=== PATIENT | female | born 1985 | race Caucasian/White ===

== ENCOUNTER 2024-01-03 13:32 | Outpatient (CLI) | payer BC, SELFPAY | END 2024-01-03 13:33 | disposition home or self-care (01) | LOC: NFLDREF 14:15 | PROVIDERS: PCP Family Medicine; Visit Provider Advanced Practice Midwife | DX: Z13.228 Encounter for screening for other metabolic disorders (principal) | CPT/HCPCS: 80069 ==

== ENCOUNTER 2024-10-18 12:13 | Emergency (ER) | payer BC, SELFPAY ==
--- OUTSIDE RECORDS SUMMARY | 2024-10-18 12:15 | XMS_ITS | Continuity of Care Document ---
Author Name [facility] Organization [facility] Care Team Providers Care Head Cd Reactor Operator Name Role Phone [facility] Unavailable Unavailable Immunizations Combined list of available immunizations from the Department of Defense and Veterans Affairs facilities. Immunization Series Date Given Administered By Site Reaction Lot Number CVX Code Drug Fans Clerk Status Comments Source COVID-19 ([employer]), MRNA, LNP-S, PF, 30 MCG/0.3 ML DOSE 2 2020 208 complet ed PFR; [id number]; 1 [facility] COVID-19 ([employer]), MRNA, LNP-S, PF, 30 MCG/0.3 ML DOSE 1 2020 208 complet ed PFR; [id number]; 1 [facility]
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
--- OUTSIDE RECORDS SUMMARY | 2024-10-18 12:15 | XMS_ITS | Clinical Summary ---
Author Organization [facility] Address [address] [place] [address] Care Team Providers Care Guest Service Agent Name Role Phone No Ref-Primary, Physician Primary Care Provider Allergies No known active allergies Medications albuterol (PROAIR HFA/PROVENTIL HFA/VENTOLIN HFA) 108 (90 Base) MCG/ACT InhalerIndicati ons:Viral bronchitis Inhale 2 puffs into the lungs every 6 hours as needed for shortness of breath / dyspnea or wheezing 1 Inhaler 1 8 Active benzonatate (TESSALON) 200 MG capsuleIndicati ons:Cough,Viral bronchitis Take 1 capsule (200 mg) by mouth 3 times daily as needed for cough 21 capsule 8 Active Social History Tobacco Use Types Packs/Day Years Used Date Smoking Tobacco: Never Smokeless Tobacco: Never Comments No Sex and Gender Information Value Date Recorded Sex Assigned at Not on file Legal Sex Female 4:41 AM WRAP KNITTING MACHINE OPERATOR Gender Identity Not on file Sexual Orientation Not on file Last Filed Vital Signs Vital Sign Reading Time Taken Comments Blood Pressure 110/70 01/07/2018 2:04 PM CDT Pulse 70 01/07/2018 2:04 PM CDT Temperature 36.6 C (97.8 F) 01/07/2018 2:04 PM CDT Respiratory Rate 18 01/07/2018 2:04 PM CDT Oxygen Saturation 97% 01/07/2018 2:04 PM CDT Inhaled Oxygen Concentration - - Weight - - Height - - Body Mass Index - - Plan of Treatment Not on file Insurance [facility] [employer] Care Teams Guest Service Agent Relationship Specialty Start Date End Date No Ref-Primary, Physician PCP - General 01/07/18
[2024-10-18 12:16] VITALS: BP 116/82; PULSE 91; RESP 18; TEMP 36.8; O2SAT 99; BMI 25.1
--- NOTE | 2024-10-18 12:37 | CRLHL7_ITS ---
For Patients: As a result of the Century Cures Act, medical imaging exams and procedure reports are released immediately into your electronic medical record. You may view this report before your referring provider. If you have questions, please contact your health care provider. INDICATION: Vaginal bleeding TECHNIQUE: Real-time carter-scale imaging of the pelvis was performed. FINDINGS: Sonographic imaging demonstrates no findings for intrauterine . Endometrium measures 3 millimeters. There is a uterine fibroid measuring 8 millimeters. No intrauterine gestational sac is seen. Right ovary measures 3.4 x 2 x 2.4 centimeters cyst in the right ovary. Left ovary measures 2.4 x 1.6 x 2.1 centimeters. There is an anechoic cyst adjacent to the left ovary which may represent a paraovarian cyst measuring 1.2 x 1 x 1.2 centimeters to the left. Adjacent ovary is a questionable solid-appearing adnexal lesion measuring 1.6 x 0.8 x 1.1 centimeter. The cine images of this area do not clearly delineate a discrete adnexal mass. There is no free fluid seen. IMPRESSION: 1. No findings for intrauterine with 3 millimeter endometrial stripe. 2. Right ovary visualized within normal limits. Left ovary identified with anechoic left paraovarian cyst. Adjacent to the left ovary is a questionable solid heterogeneous lesion that on the cine images is difficult to delineate a discrete lesion. There is no free fluid. Findings could represent very early IUP, SAB. Ectopic can not be excluded. Correlation with hCG levels, gynecology consultation is recommended. Dictated by Roma Velasco MD @ 10/18/2024 1:35:37 PM (Electronically Signed)
[2024-10-18 13:01] LABS: Basophils Absolute Auto 0.03 K/uL (0.00-0.30); Basophils Percent Auto 0.4 % (0.0-3.0); Eosinophils Absolute Auto 0.14 K/uL (0.00-0.50); Eosinophils Percent Auto 1.8 % (0.0-7.0); Hematocrit 40.9 % (33.0-51.0); Hemoglobin* 13.6 gm/dL (12.0-16.0); Immature Granulocytes Abs Auto 0.03 K/uL (0.00-0.30); Immature Granulocytes Pct Auto 0.4 %; Lymphocytes Absolute Auto 2.15 K/uL (0.90-2.90); Lymphocytes Percent Auto 27.5 % (20-44); Mean Corpuscular HGB Conc 33 gm/dL (32-36); Mean Corpuscular Hemoglobin 31 pg (26-34); Mean Corpuscular Volume 93 fL (80-100); Monocytes Percent Auto 7.9 % (0.0-11.0); Neutrophils Absolute Auto 4.84 K/uL (1.7-7.0); Platelet Count* 307 K/uL (140-440); Red Blood Count 4.41 m/uL (4.00-5.20); White Blood Count* 7.81 K/uL (4.50-11.00)
[2024-10-18 13:03] LABS: Slide Review Reflex No
--- OUTSIDE RECORDS SUMMARY | 2024-10-18 13:13 | XMS_ITS | Clinical Summary ---
Author Organization [facility] Address [address] [place] [address] Care Team Providers Care Director Clinical Information Services Name Role Phone No Ref-Primary, Physician Primary [...] on file Legal Sex Female 4:41 AM REGISTERED NURSE FIRST ASSISTANT Gender Identity Not on file Sexual Orientation [...] Plan of Treatment Not on file Insurance [facility] [employer] Care Teams Director Clinical Information Services Relationship Specialty Start Date End Date No Ref-Primary, Physician PCP - General 01/07/18
--- OUTSIDE RECORDS SUMMARY | 2024-10-18 13:14 | XMS_ITS | Continuity of Care Document ---
Author Name [facility] Organization [facility] Care Team Providers Care Glaze Sprayer Name Role Phone [facility] Unavailable Unavailable Immunizations Combined list of available immunizations from the Department of Defense and Veterans Affairs facilities. Immunization Series Date Given Administered By Site Reaction Lot Number CVX Code Drug Ceramic Engineer Status Comments Source COVID-19 ([employer]), MRNA, LNP-S, PF, 30 MCG/0.3 ML DOSE 2 2020 208 complet ed PFR; [id number]; 1 [facility] COVID-19 (PFIZER), MRNA, LNP-S, PF, 30 MCG/0.3 ML DOSE 1 2020 208 complet ed PFR; [id number]; 1 [facility]
--- OUTSIDE RECORDS SUMMARY | 2024-10-18 13:14 | XMS_ITS | Clinical Summary ---
Author Organization [email or web address] Address [address] [place] [address] Care Team Providers Care Lockstitch Tunnel Elastic Operator Name Role Phone Unavailable Primary Care Provider [...] 9lbs 1.7lbs Genetic screening: discussed, thinking about [place] Screen BMI:25 25-35lbs weight gain Ultrasound findings: [...] Immunization Administration Dates Next Due COVID-19 vaccine ([employer] 30mcg/0.3mL) PF, MDV 12/16/2020,11/25/2020 Hepatitis B (Peds) [...] on file Legal Sex Female 5:26 AM FIELD INSURANCE SALES MANAGER Gender Identity Not on file Sexual Orientation [...] 9 Ish Wasso n/Jaison gen Complications:None Delivery Location:[facility] 2018 Term 40w 4d 0h 02m 3.3 kg (7 lb 4.4 oz) F Vag Epidur al Nanettein g 8 9 THORN, BG TWILA Tiwari Complications:None Delivery Location:[facility] (UTD 2000 MB L&D TRIAGE) Last Filed [...] Procedure Name Priority Date/Time Associated Diagnosis Comments EMT THIN PREP PAP SCREEN IMAGED Routine 11/22/2022 3:55 PM CDT Cervical cancer screening ANTI HIV 1/2 Routine 06/11/2018 9:00 AM FIELD INSURANCE SALES MANAGER Encounter for supervision of other normal , unspecified trimester (HC) from Last 3 Months or Most Recently Relevant to Health Maintenance Results * EMT THIN PREP PAP SCREEN IMAGED (11/22/2022 3:55 PM CDT) Case Report Gynecologic Cytology Report Case: [id number] Authorizing Provider: Jenny Tiwari MD Collected: 11/22/2022 1555 Ordering Location: [facility] [employer] [place] Received: 11/23/2022 0833 [facility] First Screen: Natividad Echevarria Specimen: EMT ThinPrep Vial Screening, Cervical 12/22/2022 1:13 PM CDT [facility] INTERPRETATION/ RESULT NEGATIVE FOR INTRAEPITHELIAL LESION OR MALIGNANCY (NIL) (none) 12/22/2022 1:13 PM CDT [facility] IMEN ADEQUACY Satisfactory for evaluation Endocervical component present 12/22/2022 1:13 PM CDT [facility] HPV REQUEST HPV and PAP 12/22/2022 1:13 PM CDT [facility] Date of LMP unknown 12/22/2022 1:13 PM CDT [facility] Last Pap Date 03/08/19 12/22/2022 1:13 PM CDT [facility] Last Pap Result NIL 1:13 PM CDT [facility] Abnormal Pap or [place] Bx in last 5 years No 12/22/2022 1:13 PM CDT [facility] Menstrual Status Hormonally Suppressed 12/22/2022 1:13 PM CDT [facility] [place] Bx Done Today No 12/22/2022 1:13 PM CDT [facility] Additional Information None given 12/22/2022 1:13 PM CDT [facility] Comment: Cytology is screened at [facility] - [address], [place] [address] and [facility] - [address], [place] [address] [facility] - [address] [place] [address] Interpreted at [facility] - [address] [place] [address] Automated Review Successful 12/22/2022 1:13 PM CDT [facility] Comment:Specimen processed s uccessfully by automated wind energy project manager device, ThinPrep Imaging System, [employer] ANCILLARY TESTING EMT HPV Ordered, Please see separate report 12/22/2022 1:13 PM CDT [facility] Note The pap test is a [...] and malignant lesions. 12/22/2022 1:13 PM CDT [facility] Other (Cervical) Non-Blood / Unknown 11/22/2022 3:55 PM CDT 11/23/2022 8:33 AM CDT us Jenny Tiwari MD PATHOLOGY/CYTOLOGY Final Result [facility] [address] [place] [address], [place] * ANTI HIV 1/2 (06/11/2018 9:00 AM FIELD INSURANCE SALES MANAGER) HIV-1/HIV-2 ANTIBODY Non-Reacti ve Non-Reacti ve 06/11/2018 3:24 PM FIELD INSURANCE SALES MANAGER [facility] Comment:HIV-1 p24 and HIV-1/ HIV-2 Ab not detected. Blood BLOOD SPECIMEN / Unknown Butterfly / Unknown 06/11/2018 9:00 AM FIELD INSURANCE SALES MANAGER 06/11/2018 9:00 AM FIELD INSURANCE SALES MANAGER us Jenny Tiwari MD SEND OUTS Final Re sult [facility] [address] [place] [address], [place] from Last 3 Months or Most [...]
[2024-10-18 13:29] LABS: HCG Quantitative* 60.65 mIU/mL
--- NOTE | 2024-10-18 13:35 | ED.GENADULT ---
HPI - General Adult General Chief complaint: Vaginal Bleeding Stated complaint: Bleeding Time Seen by Provider: 10/18/24 12:30 Source: patient Mode of arrival: ambulatory Limitations: no limitations History of Present Illness HPI narrative: 39-year-old female coming in today complaining of vaginal bleeding for the last 3 days. She states that on Monday she took a test and it was positive. She states that she has been having moderate to heavy bleeding. She states that she will switch her pad every 3-4 hours. She denies feeling dizzy or lightheaded. No chest pain or shortness of breath. She is concerned that she is having a miscarriage. Her LMP was September 10. patient is not on control and is trying to get . Related Data Home Medications ?Medication ?Instructions ?Recorded ?Confirmed No Known Home Medications 01/03/24 10/18/24 Allergies Allergy/AdvReac Type Severity Reaction Status Date / Time No Known Drug Allergies Allergy Verified 10/18/24 12:23 Review of Systems Status of ROS: Reports: 10 or more systems reviewed and unremarkable except as noted in History and below [facility] Medical History Abnormal mammogram of left breast ?R92.8 - Other abnormal and inconclusive findings on diagnostic imaging of breast (ICD-10) History of pre-eclampsia ?Z87.59 - Personal history of other complications of , childbirth and the puer[place]ium (ICD-10) TBI (traumatic brain injury) ?S06.9XAA - Unspecified intracranial injury with loss of consciousness status unknown, initial encounter (ICD-10) Skull fracture ?S02.91XA - Unspecified fracture of skull, initial encounter for closed fracture (ICD-10) Surgical History Hx of LASIK ?Z98.890 - Other specified postprocedural states (ICD-10) Brickeys teeth extracted ?K08.409 - Partial loss of teeth, unspecified cause, unspecified class (ICD-10) Family History Mother Cardiac arrhythmia Maternal Grandmother Breast cancer Paternal Grandmother Breast cancer Father High blood pressure Social History What is your current living situation?: I presently have a place to live Problems where you live: no known problems In the past 12 months, utilities in danger of being shut off: no In past 12 months, lack of transportation kept you from medical appts, meetings, work, or getting things needed for daily living: no In the past 12 mos, have been you worried that your food would run out before you had money to buy more?: never true In the past 12 mos, the food you bought just didn't last and you didn't have money to buy more?: never true Smoking Status: Never smoker Do you use any of these nicotine containing products: None How often do you have a drink containing alcohol: never How often do you have six or more drinks on one occasion: Never AUDIT-C Alcohol total score: 0 Non-prescribed substance use: denies use Within the last year, have you been humiliated or emotionally abused in other ways by your partner or ex-partner: no Within the last year, have you been afraid of your partner or ex-partner: no Within the last year, have you been raped or forced to have any kind of sexual activity by your partner or ex-partner: no Within the last year, have you been kicked, hit, slapped, or otherwise physically hurt by your partner or ex-partner: no HARK total score: 0 How often does anyone, including family, friends and others, physically hurt you: never How often does anyone, including family, friends and others, insult or talk down to you: rarely How often does anyone, including family, friends and others, threaten you with harm: never How often does anyone, including family, friends and others, scream or curse at you: never Health Related Social Needs: Other personal risk factors, not elsewhere classified (Z91.89) Exam Narrative: Exam Narrative: Well-nourished well-developed patient in no acute distress. Alert and oriented. Answers questions appropriately. Mood and affect are appropriate. Thoughts are goal oriented and rational. No tangential or magical thinking noted. Patient speaks in full sentences without needing to catch her breath. HEENT: Normocephalic atraumatic. Pupils are equally round reactive to light. Extraocular muscles are intact. Conjunctivae are moist without any icterus noted. Moist mucous membranes. Cardiovascular: Heart is regular rate and rhythm S1 and S2 are present without any murmurs. Lungs: Clear to auscultation bilaterally no wheezes rhonchi or rales are appreciated. Patient takes deep breaths without any discomfort. Abdomen: Soft and nontender nondistended with normal bowel sounds. Extremities: Bilateral lower extremities are without edema. Skin: Well perfused without any obvious rashes. Const: Vital Signs, click to edit/add: Vital Signs - 24 hr 10/18/24 12:16 Temperature 98.3 F Pulse Rate [Right Pulse Oximeter] 91 Respiratory Rate 18 Blood Pressure [Ri ght Upper Arm] 116/82 Pulse Oximetry 99 Oxygen Delivery Me thod Room Air Course Course ED Course: CBCs normal. HCG 60 consistent with at 1-2 weeks. Ultrasound does not show an IUP does show a questionable solid heterogenous lesion adjacent to the left ovary. Discussed results with Dr. Winters who recommends repeat hCG in 48 hours which will be done through the outpatient weak and labs in the hospital. And then follow up on Monday with OBGYN. Vital Signs Vital signs: Initial Vital Signs Temperature 98.3 F 10/18/24 12:16 Temperature Source Temporal Artery Scan 10/18/24 12:16 Pulse Rate 91 10/18/24 12:16 Pulse Rhythm Regular 10/18/24 12:16 Pulse Strength 3+ Normal 10/18/24 12:16 Respiratory Rate 18 10/18/24 12:16 Blood Pressure 116/82 10/18/24 12:16 Blood Pressure Mean 93 10/18/24 12:16 Blood Pressure Position Sitting 10/18/24 12:16 Pulse Oximetry 99 10/18/24 12:16 Oxygen Delivery Method Room Air 10/18/24 12:16 Vital Signs Temperature 98.3 F 10/18/24 12:16 Pulse Rate 91 10/18/24 12:16 Respiratory Rate 18 10/18/24 12:16 Blood Pressure 116/82 10/18/24 12:16 Pulse Oximetry 99 10/18/24 12:16 Oxygen Delivery Method Room Air 10/18/24 12:16 Temperature 98.3 F 10/18/24 12:16 Pulse Rate 91 10/18/24 12:16 Respiratory Rate 18 10/18/24 12:16 Blood Pressure 116/82 10/18/24 12:16 Pulse Oximetry 99 10/18/24 12:16 Oxygen Delivery Method Room Air 10/18/24 12:16 Medical Decision Making MDM Narrative Medical decision making narrative: 39-year-old female, positive test presents with vaginal bleeding. Differential diagnosis at this time includes intrauterine , threatened , ectopic . Plan per above. ABO Rh added to blood draw. Lab Data Lab results reviewed: Yes I reviewed the patient's lab results Labs: Lab Results 10/18/24 Range/Units 12:45 WBC 7.81 (4.50-11.00) K/uL RBC 4.41 (4.00-5.20) m/uL Hgb 13.6 (12.0-16.0) gm/dL Hct 40.9 (33.0-51.0) % MCV 93 (80-100) fL MCH 31 (26-34) pg MCHC 33 (32-36) gm/dL RDW Coeff of Raudel 12.0 (11.5-15.5) % Plt Count 307 (140-440) K/uL Neut % (Auto) 62.0 (42.0-72.0) % Lymph % (Auto) 27.5 (20-44) % Davison % (Auto) 7.9 (0.0-11.0) % Eos % (Auto) 1.8 (0.0-7.0) % Baso % (Auto) 0.4 (0.0-3.0) % Neut # (Auto) 4.84 (1.7-7.0) K/uL Lymph # (Auto) 2.15 (0.90-2.90) K/uL Davison # (Auto) 0.60 (0.00-0.90) K/UL Eos # (Auto) 0.14 (0.00-0.50) K/uL Baso # (Auto) 0.03 (0.00-0.30) K/uL Abs Immat Gran (auto) 0.03 (0.00-0.30) K/uL Imm/Tot Granulo (auto) 0.4 % HCG, Quant 60.65 mIU/mL Imaging Data US - abdomen: Attestation: I have reviewed the pertinent imaging results. Radiologist's impression: FINDINGS: Sonographic imaging demonstrates no findings for intrauterine . Endometrium measures 3 millimeters. There is a uterine fibroid measuring 8 millimeters. No intrauterine gestational sac is seen. Right ovary measures 3.4 x 2 x 2.4 centimeters cyst in the right ovary. Left ovary measures 2.4 x 1.6 x 2.1 centimeters. There is an anechoic cyst adjacent to the left ovary which may represent a paraovarian cyst measuring 1.2 x 1 x 1.2 centimeters to the left. Adjacent ovary is a questionable solid-appearing adnexal lesion measuring 1.6 x 0.8 x 1.1 centimeter. The cine images of this area do not clearly delineate a discrete adnexal mass. There is no free fluid seen. IMPRESSION: 1. No findings for intrauterine with 3 millimeter endometrial stripe. 2. Right ovary visualized within normal limits. Left ovary identified with anechoic left paraovarian cyst. Adjacent to the left ovary is a questionable solid heterogeneous lesion that on the cine images is difficult to delineate a discrete lesion. There is no free fluid. Findings could represent very early IUP, SAB. Ectopic can not be excluded. Correlation with hCG levels, gynecology consultation is recommended. Discharge Plan Discharge Clinical Impression: Vaginal bleeding Patient Disposition: Home, Self-Care Condition: Stable Additional Instructions: You will need a repeat hCG test in 48 hours, on Monday, to see what is happening with your hormone levels. Then you will follow-up with OBGYN on Monday to decide next steps. Because it is so early on in the , it is unclear today exactly what is going on. It is possible that you have a viable in the uterus, that you are having a miscarriage or that you have an ectopic at this time. If you develop significant abdominal pain in the next 48 hours then you should return to the emergency department right away. Prescriptions: No Action No Known Home Medications Follow Up/Referrals: Cooper Newman MD [Primary Care Provider] - Stand Alone Forms: [employer] Info Instructions
[2024-10-18 14:22] VITALS: BP 105/75; PULSE 82; RESP 18; TEMP 36.4; O2SAT 98
== END 2024-10-18 14:37 | disposition home or self-care (01) ==
PROVIDERS: Emergency Provider Family Medicine; PCP Family Medicine
DX: N93.9 Abnormal uterine and vaginal bleeding, unspecified (principal); Z3A.01 Less than 8 weeks gestation of pregnancy
CPT/HCPCS: 36415; 76817; 84702; 85025; 86900; 86901; 99284

== ENCOUNTER 2024-10-20 12:24 | Outpatient (REF) | payer BC, SELFPAY ==
[2024-10-20 13:38] LABS: HCG Quantitative* 51.67 mIU/mL
== END 2024-10-20 12:25 | disposition home or self-care (01) ==
LOC: NPINS 12:24
PROVIDERS: Obstetrics & Gynecology; PCP Family Medicine; Visit Provider Obstetrics & Gynecology
DX: O20.9 Hemorrhage in early pregnancy, unspecified (principal)
CPT/HCPCS: 84702

== ENCOUNTER 2024-10-22 12:06 | Outpatient (CLI) | payer BC, SELFPAY | END 2024-10-22 12:07 | disposition home or self-care (01) | LOC: NFLDREF 10-23 11:23 | PROVIDERS: PCP Family Medicine; Referring Provider Family Medicine; Visit Provider Obstetrics & Gynecology | DX: O36.80X0 Pregnancy with inconclusive fetal viability, not applicable or unspecified (principal); Z3A.01 Less than 8 weeks gestation of pregnancy | CPT/HCPCS: 84702; 86850; 86900; 86901 ==

== ENCOUNTER 2024-10-29 12:24 | Outpatient (CLI) | payer BC, SELFPAY | END 2024-10-29 12:25 | disposition home or self-care (01) | LOC: FRMREF 12:25 | PROVIDERS: PCP Family Medicine; Visit Provider Obstetrics & Gynecology | DX: O20.9 Hemorrhage in early pregnancy, unspecified (principal) | CPT/HCPCS: 84702; 84703 ==

== ENCOUNTER 2024-11-06 11:36 | Outpatient (CLI) | payer BC, SELFPAY | END 2024-11-06 11:37 | disposition home or self-care (01) | LOC: NFLDREF 11-11 16:59 | PROVIDERS: PCP Family Medicine; Referring Provider Family Medicine; Visit Provider Obstetrics & Gynecology | DX: O03.9 Complete or unspecified spontaneous abortion without complication (principal) | CPT/HCPCS: 84702 ==

== ENCOUNTER 2024-12-30 07:29 | Outpatient (CLI) | payer BC, SELFPAY | END 2024-12-30 07:30 | disposition home or self-care (01) | LOC: NFLDREF 18:54 | PROVIDERS: PCP Family Medicine; Referring Provider Family Medicine; Visit Provider Obstetrics & Gynecology | DX: O20.9 Hemorrhage in early pregnancy, unspecified (principal) | CPT/HCPCS: 84702 ==

== ENCOUNTER 2025-05-12 11:54 | Outpatient (CLI) | payer BC, SELFPAY ==
--- NOTE | 2025-05-12 12:15 | CRLHL7_ITS ---
For Patients: As a result of the Cures Act, medical imaging exams and procedure reports are released immediately into your electronic medical record. You may view this report before your referring provider. If you have questions, please contact your health care provider. LMP: 03/15/2025. JOVANNA by LMP: 12/20/2025. GA: 8w, 2d. INDICATION: Dating and viability. TECHNIQUE: Transvaginal obstetrical ultrasound images were obtained. CRL: 2.1 cm, 8 weeks 5 days. JOVANNA 12/17/2025. FHR: 178 bpm. GESTATIONAL SAC: 3.5 cm, appears within normal limits. YOLK SAC: 3.2 mm, appears within normal limits. RIGHT OVARY: 2.1 x 2.2 x 2.3 cm, not well visualized. LEFT OVARY: 4.7 x 4.6 x 5.0. IMPRESSION: 1. Single living intrauterine measures 8 weeks 5 days with sonographic due date 12/17/2025. 2. Inferior subchorionic hemorrhage measures 1.1 x 0.5 x 1.9 cm. 3. Simple circumscribed anechoic left ovarian cyst measures 4.7 x 4.0 x 4.8 cm. Je Zhou M.D. Diagnostic Radiologist [email or web address] bM/Dictated by: Je Zhou MD @ 05/12/2025 8:53:00 PM (Electronically Signed)
== END 2025-05-12 11:55 | disposition home or self-care (01) ==
LOC: US 11:54
PROVIDERS: Visit Provider Advanced Practice Midwife
DX: O20.9 Hemorrhage in early pregnancy, unspecified (principal); O34.81 Maternal care for other abnormalities of pelvic organs, first trimester; N83.291 Other ovarian cyst, right side; Z3A.08 8 weeks gestation of pregnancy; O09.521 Supervision of elderly multigravida, first trimester
CPT/HCPCS: 76817

== ENCOUNTER 2025-05-12 13:08 | Outpatient (CLI) | payer BC, SELFPAY | END 2025-05-12 13:09 | disposition home or self-care (01) | PROVIDERS: Visit Provider Advanced Practice Midwife | DX: O09.521 Supervision of elderly multigravida, first trimester (principal); Z3A.08 8 weeks gestation of pregnancy | CPT/HCPCS: 82565; 82570; 83020; 83021; 84156; 84450; 84460; 84520; 85660; 86592; 86703; 86704; 86706; 86762; 86787; 86803; 86850; 87086; 87340 ==

== ENCOUNTER 2025-05-20 12:42 | Outpatient (CLI) | payer BC, SELFPAY | END 2025-05-20 12:43 | disposition home or self-care (01) | LOC: NFLDREF 05-26 21:26 | PROVIDERS: Visit Provider Advanced Practice Midwife | DX: Z34.91 Encounter for supervision of normal pregnancy, unspecified, first trimester (principal) | CPT/HCPCS: 82570; 84156 ==

== ENCOUNTER 2025-06-11 14:36 | Outpatient (CLI) | payer BC, SELFPAY | END 2025-06-11 14:37 | disposition home or self-care (01) | LOC: NFLDREF 06-26 16:26 | PROVIDERS: Visit Provider Advanced Practice Midwife | DX: Z34.91 Encounter for supervision of normal pregnancy, unspecified, first trimester (principal) | CPT/HCPCS: 87491; 87591 ==

== ENCOUNTER 2025-07-08 13:15 | Outpatient (CLI) | payer BC, SELFPAY | END 2025-07-08 13:16 | disposition home or self-care (01) | LOC: NFLDREF 07-09 11:59 | PROVIDERS: Visit Provider Advanced Practice Midwife | DX: R79.89 Other specified abnormal findings of blood chemistry (principal); O09.522 Supervision of elderly multigravida, second trimester | CPT/HCPCS: 84450; 84460 ==